=== PATIENT | female | born 1955 | race Caucasian/White ===

== ENCOUNTER → 2017-10-23 | Day surgery (SDC) | payer MEDICARE ==
[~2017-10-23] MED LIST: ALBUTEROL INH; ALLOPURINOL100 MG PO; AMLODIPINE BES2.5 MG PO; AMLODIPINE BESY10 MG PO; ASPIRIN81 MG PO; CALCITRIOL0.25 MCG PO; CARVEDILOL3.125 MG PO; CYMBALTA60 MG PO; DEXILANT60 MG PO; DIOVAN HCT 3201 EACH PO; FENTANYL CITRATE/PF 100MCG/2 ML INJ ONE; FUROSEMIDE40 MG PO; HUMALOG100 UNIT/1 SC; HUMALOG100 UNIT/1 SQ; HYDROCODON-ACE1 EA12 PO; LANTUS100 UNIT/1 SQ; LANTUS100 UNITS/ SQ; LEVOTHYROXINE112 MCG PO; LIPITOR20 MG PO; METFORMIN HCL1000 MG PO; MIDAZOLAM HCL 2 MG/2 ML VIAL ONE; MONTELUKAST SOD10 MG PO; NOVOLOG100 UNIT/1 SQ; PROPOFOL IV EMULSION 10 MG/ML 20 ML VIAL ONE; SYMBICORT 16010.2 GM PO; ULTRAM 50MG50 MG PO; VITAMIN B12 PO; VITAMIN D1000 UNIT PO
== END | disposition home or self-care (01) ==
LOC: OR 07:39
PROVIDERS: ATTEND Internal Medicine Gastroenterology
DX: K29.50 Unspecified chronic gastritis without bleeding (principal); I85.00 Esophageal varices without bleeding; K57.30 Diverticulosis of large intestine without perforation or abscess without bleeding; K64.8 Other hemorrhoids; E11.9 Type 2 diabetes mellitus without complications; I25.119 Atherosclerotic heart disease of native coronary artery with unspecified angina pectoris; I10 Essential (primary) hypertension; I45.10 Unspecified right bundle-branch block; J45.909 Unspecified asthma, uncomplicated; Q61.3 Polycystic kidney, unspecified; E66.01 Morbid (severe) obesity due to excess calories; Z01.810 Encounter for preprocedural cardiovascular examination; Z79.82 Long term (current) use of aspirin; Z79.4 Long term (current) use of insulin; Z68.43 Body mass index [BMI] 50.0-59.9, adult
CPT/HCPCS: 36415; 43239; 45378; 82948; 88305; 88312; 93005; J2250

== ENCOUNTER → 2019-12-09 | Day surgery (SDC) | payer MEDICARE ==
[2019-12-03 15:20] LABS: BASOPHILS # (AUTO) 0.1 (0.0-0.1); BASOPHILS % 0.7 % (0.0-1.0); EOSINOPHILS # (AUTO) 0.3 (0.0-0.4); EOSINOPHILS % 4.7 % (0.0-6.0); HEMATOCRIT 33.8 % (34.2-44.1); LYMPHOCYTES # (AUTO) 1.6 (1.0-3.2); LYMPHOCYTES % 22.3 % (18.0-39.1); MEAN CORPUSCULAR HEMOGLOBIN 26.2 pg (28-32); MEAN CORPUSCULAR HGB CONC 29.6 g/dL (31-35); MEAN CORPUSCULAR VOLUME 88.7 fL (81-99); MONOCYTES # (AUTO) 0.5 (0.2-0.8); MONOCYTES % 6.9 % (4.4-11.3); NEUTROPHILS # (AUTO) 4.7 (2.1-6.9); PLATELET COUNT 219 x10e3/uL (140-360); RED BLOOD COUNT 3.81 x10e6/uL (3.6-5.1)
[2019-12-03 15:31] LABS: INR 0.95; PROTHROMBIN TIME 13.2 seconds (11.9-14.5)
[2019-12-03 15:32] LABS: PARTIAL THROMBOPLASTIN TIME 28.7 seconds (23.8-35.5)
[2019-12-03 15:40] LABS: ALBUMIN 3.4 g/dL (3.5-5.0); ALBUMIN/GLOBULIN RATIO 0.9 (0.8-2.0); ANION GAP 10.7 mmol/L (8-16); CALCIUM 9.6 mg/dL (8.4-10.2); CREATININE, SERUM 2.83 mg/dL (0.57-1.11); POTASSIUM 5.7 mmol/L (3.5-5.1)
[~2019-12-09] MED LIST changes: +CRESTOR10 MG PO; -FENTANYL CITRATE/PF 100MCG/2 ML INJ ONE; -MIDAZOLAM HCL 2 MG/2 ML VIAL ONE; +OMEPRAZOLE40 MG PO; -PROPOFOL IV EMULSION 10 MG/ML 20 ML VIAL ONE; +PROPOFOL IV EMULSION 10 MG/ML 50 ML VIAL ONE; +TORSEMIDE20 MG PO; +VALSARTAN/HCTZ PO
--- OUTSIDE RECORDS SUMMARY | 2019-12-09 06:00 | XMS REPORT ---
[facility] Phone Unavailable Care Team Providers Care Sales Management Trainee Name Role Phone Halle WINKLER PP Unavailable Kaela Lujan Unavailable Unavailable Problems This patient has no known problems. Allergies, Adverse Reactions, Alerts This patient has no known allergies or adverse reactions. Medications This patient has no known medications. Encounters Start Date/Time End Date/Time Encounter Type Admission Type Attending [facility] Care Facility Care Department Encounter ID 2019-06-28 07:55:09 Outpatient [facility] [id number] 2019-11-18 11:25:00 2019-11-18 08:19:00 Inpatient E [facility] [id number] 2019-08-20 09:10:00 2019-08-20 09:10:00 Outpatient [facility] CAR [id number] 2019-08-16 14:44:00 2019-08-16 14:44:00 Outpatient [facility] CAR [id number] 2019-03-24 15:02:00 2019-03-24 15:02:00 Outpatient [facility] [id number] 2019-03-07 12:17:00 2019-03-07 12:17:00 Emergency E [facility] [id number] 2019-02-25 13:06:00 2019-02-25 13:06:00 Outpatient [facility] MED [id number] 2017-05-19 10:22:00 2017-05-19 10:22:00 Outpatient C [facility] [id number] Results Test Description Test Time Test Comments Text Results Atomic Results Result Comments Radiologic examination, chest; 2 views 2019-06-24 16:36:22 CLINICAL INDICATION: R05 CoughTECHNIQUE: PA and lateral views of the chest.FINDINGS: Comparison study: 05/16/2012The lungs are clear. There are no infiltrates or effusions.The cardiac silhouette is unremarkable. The crow and mediastinum are intact.The regional skeleton is intact.IMPRESSION:No acute/interval changes. CR - XRAY HAND XR MIN 3 VWS RT 2019-01-13 15:27:35 CLINICAL INDICATION: M79.641 Pain in right handCOMPARISON STUDY: No prior study.FINDINGS:There are no acute fractures, dislocations or subluxations.Mild osteoarthritis is noted in the IP joints of the fingers and thumb the. Mild joint space narrowing, subchondral sclerosis and minor osteophyte formation are observed.No radiopaque foreign body.The soft tissues are normal. IMPRESSION:1. No acute a bnormality.2. 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 CR - XRAY XRAY DEXA BONE DENSITY 2018-11-02 15:57:00 CLINICAL INDICATION: Z13.820 Encounter for screening for osteoporosis TECHNIQUE: Bone densitometry is performed using the Hologic Dexa. Imaging of the spine and hip are performed. Quantitative analysis is accomplished.FINDINGS:COMPARISON: NoneThe BMD at the left femoral neck is 0.832 gms/cm.sq. This is consistent with young adult T- score of -0.4 and age matched Z-score of 1.0.The BMD at the right femoral neck is 0.847 gms/cm.sq. This is consistent with young adult T-score of -0.2 and age matched Z-score of 1.2.Average bone mineral density of L1 - L4 is 1.062 gms/cm.sq. This is consistent with young adult T-score of 0.1 and age matched Z- score of 1.8.IMPRESSION:WHO diagnostic category is normal bone density based upon lumbar spine and bilateral femoral necks. Mammo Digital Mammography Screening 2018-11-02 15:54:31 CLINICAL INDICATION: Z12.31 Encntr screen mammogram for malignant neoplasm of breastTECHNIQUE: Digital acquisition of the breasts is performed on the ACR accredited Full Field Digital Mammography Unit. Computer Assisted Detection (CAD) is then accomplished using [employer]. FINDINGS:COMPARISON STUDY: Back to 09/25/2016.There are scattered fibroglandular tissues in both breasts.No dominant mass, skin thickening, architectural distortion or suspicious microcalcifications are noted. IMPRESSION:No evidence of malignancy. RECOMMENDATION: Follow up screening mammogram in 1 year.Category: BIRADS 1 - Negative. For internal use only. N:12 US VENOUS/BILAT/LOWER 2018-08-25 16:28:48 CLINICAL INDICATION: M79.609 Pain in unspecified limbMODALITY: GETECHNIQUE: Real time, high frequency Doppler waveform and color imaging of the lower extremities are performed.COMPARISON: none FINDINGS:Common femoral, greater saphenous, femoral, popliteal and proximal calf veins are imaged. Spontaneous and phasic flow are observed. Vessels are compressible without evidence of intraluminal thrombus. IMPRESSION:Unremarkable venous Doppler ultrasound of the bilateral lower extremity. US BREAST COMPLETE UNL LT/RT CLINICAL INDICATION: Abnormal mammogram.MODALITY: Siemens Inspiration Full Field Digital Mammography, Kaela Affiniti 70GTECHNIQUE: Digital acquisition of the breasts is performed on the [facility] acc redited Full Field Digital Mammography Unit. Computer Assisted Detection (CAD) is then accomplished using [employer]. Imaging of the right breast is performed.Realtime and Doppler color breast imaging in all quadrants was performed on the right breast.FINDINGS:COMPARISON STUDY: 10/21/2017There are scattered fibroglandular tissues in both breasts.Additional mammographic images of the right breast demonstrate no significant underlying abnormalities.Ultrasound of the right breast demonstrates benign lipomas measuring 7 mm at 2 o clock, 6 cm from the nipple and 1.8 cm at 4 o clock in the subareolar region. No other sonographic findings are noted in the right breast or axilla. The patient was examined by myself.IMPRESSION:No mammographic or sonographic evidence of malignancy in the right breast.RECOMMENDATION:Routine annual screening mammogram in 1 year is recommended.The findings were discussed with the patient.Category: BIRADS 2 - Benign. For internal use only N:12 Mammo Digital Mammography Screening CLINICAL INDICATION: This is a routine annual screening mammogram. The patient has no complaints.MODALITY: Siemens Inspiration Full Field Digital MammographyTECHNIQUE: Digital acquisition of th e breasts is performed on the [facility] accredited Full Field Digital Mammography Unit. Computer Assisted Detection (CAD) is then accomplished using [employer]. Imaging of the bilateral breasts is performed.FINDINGS:COMPARISON STUDY: 09/25/2016The breasts are predominantly fatty.There is an asymmetry in the right lateral breast on the craniocaudad view only. There are no suspicious masses, calcifications or architectural distortion in the left breast.IMPRESSION:Asymmetry in the right breast, probably fibroglandular breast tissue. No mammographic evidence of malignancy in the left breast.RECOMMENDATION : Additional mammographic images and possible ultrasound of the right breast are recommended for further evaluation.Category: BIRADS 0 - Incomplete. Needs additional imaging for evaluation. For internal use only A:0
--- NOTE | 2019-12-09 07:50 | NUR ---
SPIRITUAL CARE - Pre-Surgery Assessment: Pt in bed. Pt's at bedside. Pt reported supportive attention from family and friends. Intervention: I provided pastoral presence, hospitality, prayer, and sympathetic listening. I acquainted pt with availability of keel press operator while hospitalized. Outcome: Pt expressed appreciation for visit. No need for follow up indicated at this time. HEATHER Bowmanlain Spiritual Care Department O: [phone]
[2019-12-09 09:05] VITALS: BP 121/81
== END | disposition home or self-care (01) ==
LOC: OR 05:56
PROVIDERS: ATTEND Internal Medicine Gastroenterology
DX: K29.70 Gastritis, unspecified, without bleeding (principal); K31.89 Other diseases of stomach and duodenum; K74.69 Other cirrhosis of liver; R11.2 Nausea with vomiting, unspecified; I10 Essential (primary) hypertension; E11.9 Type 2 diabetes mellitus without complications; E66.01 Morbid (severe) obesity due to excess calories; Z68.43 Body mass index [BMI] 50.0-59.9, adult; D64.9 Anemia, unspecified; Z86.010 Personal history of colon polyps; G47.30 Sleep apnea, unspecified; K44.9 Diaphragmatic hernia without obstruction or gangrene; Z80.0 Family history of malignant neoplasm of digestive organs; Z80.8 Family history of malignant neoplasm of other organs or systems; Z83.3 Family history of diabetes mellitus; Z82.49 Family history of ischemic heart disease and other diseases of the circulatory system; Z79.4 Long term (current) use of insulin
CPT/HCPCS: 36415 ×2; 43239; 80053; 82948; 84132; 85025; 85610; 85730; 88305; 88312; 93005; J2704

== ENCOUNTER → 2020-08-18 | Day surgery (SDC) | payer OTHER ==
[2020-08-15 11:57] LABS: BASOPHILS # (AUTO) 0.1 (0.0-0.1); BASOPHILS % 0.9 % (0.0-1.0); EOSINOPHILS # (AUTO) 0.5 (0.0-0.4); EOSINOPHILS % 6.7 % (0.0-6.0); HEMATOCRIT 32.4 % (34.2-44.1); HEMOGLOBIN 9.5 g/dL (12.0-16.0); LYMPHOCYTES # (AUTO) 1.3 (1.0-3.2); LYMPHOCYTES % 17.9 % (18.0-39.1); MEAN CORPUSCULAR HEMOGLOBIN 26.2 pg (28-32); MEAN CORPUSCULAR HGB CONC 29.3 g/dL (31-35); MEAN CORPUSCULAR VOLUME 89.5 fL (81-99); MONOCYTES # (AUTO) 0.4 (0.2-0.8); MONOCYTES % 5.7 % (4.4-11.3); NEUTROPHILS # (AUTO) 4.8 (2.1-6.9); NEUTROPHILS % 68.4 % (38.7-80.0); PLATELET COUNT 194 x10e3/uL (140-360); RED BLOOD COUNT 3.62 x10e6/uL (3.6-5.1)
[2020-08-15 12:07] LABS: INR 1.01; PROTHROMBIN TIME 13.8 seconds (11.9-14.5)
[2020-08-15 12:08] LABS: PARTIAL THROMBOPLASTIN TIME 29.2 seconds (23.8-35.5)
[2020-08-15 12:14] LABS: ALBUMIN 3.3 g/dL (3.5-5.0); ALBUMIN/GLOBULIN RATIO 0.8 (0.8-2.0); ANION GAP 12.5 mmol/L (8-16); CALCIUM 8.9 mg/dL (8.4-10.2); CREATININE, SERUM 3.07 mg/dL (0.57-1.11); POTASSIUM 5.5 mmol/L (3.5-5.1)
[~2020-08-18] MED LIST changes: +ALBUTEROL0.63 MG/3 INH; +LIDOCAINE HCL 2% LOCAL INJ 5 ML SDV VIAL INJ ONE; +PROPOFOL IV EMULSION 10 MG/ML 20 ML VIAL ONE; -PROPOFOL IV EMULSION 10 MG/ML 50 ML VIAL ONE
[2020-08-18 07:45] VITALS: BP 122/65
== END | disposition home or self-care (01) ==
LOC: OR 05:30
PROVIDERS: ATTEND Internal Medicine Gastroenterology
DX: K92.1 Melena (principal); K74.69 Other cirrhosis of liver; K57.30 Diverticulosis of large intestine without perforation or abscess without bleeding; K64.8 Other hemorrhoids; Z71.3 Dietary counseling and surveillance; I10 Essential (primary) hypertension; E11.9 Type 2 diabetes mellitus without complications; E66.01 Morbid (severe) obesity due to excess calories; R42 Dizziness and giddiness; J45.909 Unspecified asthma, uncomplicated; G47.33 Obstructive sleep apnea (adult) (pediatric); E78.5 Hyperlipidemia, unspecified; I83.90 Asymptomatic varicose veins of unspecified lower extremity; K44.9 Diaphragmatic hernia without obstruction or gangrene; N28.1 Cyst of kidney, acquired; F41.9 Anxiety disorder, unspecified; X58.XXXA Exposure to other specified factors, initial encounter; T78.40XA Allergy, unspecified, initial encounter; Z01.810 Encounter for preprocedural cardiovascular examination; Z01.812 Encounter for preprocedural laboratory examination; Z11.59 Encounter for screening for other viral diseases; Z79.4 Long term (current) use of insulin; Z79.82 Long term (current) use of aspirin; Z68.43 Body mass index [BMI] 50.0-59.9, adult; Z87.01 Personal history of pneumonia (recurrent); Z86.718 Personal history of other venous thrombosis and embolism; Z87.891 Personal history of nicotine dependence; Z80.0 Family history of malignant neoplasm of digestive organs
CPT/HCPCS: 36415; 45378; 80053; 82948; 84132; 85025; 85610; 85730; 93005; J2001

== ENCOUNTER → 2024-09-30 | Day surgery (SDC) | payer OTHER ==
[~2024-09-30] MED LIST changes: +HYDROCODON-ACE1 EA11 PO; -LIDOCAINE HCL 2% LOCAL INJ 5 ML SDV VIAL INJ ONE; +RENAL CAPS SOFTG1 MG PO
[2024-09-30] MEDS: SODIUM CHLORIDE 0.9% 500ML 500 ML ONE (06:11)
[2024-09-30 06:59] LABS: BASOPHILS # (AUTO) 0.1 (0.0-0.1); BASOPHILS % 1.3 % (0.0-1.0); EOSINOPHILS # (AUTO) 0.2 (0.0-0.4); HEMATOCRIT 42.4 % (34.2-44.1); HEMOGLOBIN 12.6 g/dL (12.0-16.0); LYMPHOCYTES % 16.5 % (18.0-39.1); MEAN CORPUSCULAR HEMOGLOBIN 31.9 pg (28-32); MEAN CORPUSCULAR HGB CONC 29.7 g/dL (31-35); MEAN CORPUSCULAR VOLUME 107.3 fL (81-99); MONOCYTES # (AUTO) 0.5 (0.2-0.8); MONOCYTES % 7.9 % (4.4-11.3); NEUTROPHILS # (AUTO) 4.2 (2.1-6.9); NEUTROPHILS % 70.3 % (38.7-80.0); PLATELET COUNT 139 x10e3/uL (140-360); RED BLOOD COUNT 3.95 x10e6/uL (3.6-5.1); RED CELL DISTRIBUTION WIDTH 14.4 % (11.7-14.4); WHITE BLOOD COUNT 5.94 x10e3/uL (4.8-10.8)
[2024-09-30 07:09] LABS: INR 0.93
[2024-09-30 07:25] LABS: ALBUMIN 3.3 g/dL (3.5-5.0); ALBUMIN/GLOBULIN RATIO 0.8 (0.8-2.0); ALKALINE PHOSPHATASE 62 IU/L (40-150); ANION GAP 20.1 mmol/L (8-16); BILIRUBIN,TOTAL 0.6 mg/dL (0.2-1.2); BLOOD UREA NITROGEN 20 mg/dL (7-26); BUN/CREATININE RATIO 3 (6-25); CALCIUM 8.8 mg/dL (8.4-10.2); CARBON DIOXIDE 25 mmol/L (22-29); CHLORIDE 96 mmol/L (98-107); CREATININE, SERUM 6.43 mg/dL (0.57-1.11); EST GLOMERULAR FILTRATION RATE 7 ML/MIN (>=60); GLUCOSE 121 mg/dL (74-118); POTASSIUM 4.1 mmol/L (3.5-5.1); SODIUM 137 mmol/L (136-145); TOTAL PROTEIN 7.3 g/dL (6.5-8.1)
[2024-09-30 07:37] LABS: ALANINE AMINOTRANSFERASE < 6 IU/L (0-55)
[2024-09-30 08:39] VITALS: TEMP 98.1
[2024-09-30 09:00] VITALS: BP 105/66; PULSE 80; RESP 18; O2SAT 99
[2024-09-30 09:58] LABS: EOSINOPHILS % (MANUAL) 2 % (0-7); LYMPHOCYTES % (MANUAL) 20 % (19-48); MONOCYTES % (MANUAL) 8 % (3.4-9.0); NEUTROPHILS % (MANUAL) 70 % (40-74); PLATELET ESTIMATE SLIGHTLY DECREASED; PLATELET MORPHOLOGY COMMENT NORMAL; RBC MORPHOLOGY COMMENT NORMAL
== END | disposition home or self-care (01) ==
LOC: OR 05:50
PROVIDERS: ATTEND Internal Medicine Gastroenterology
DX: R13.10 Dysphagia, unspecified (principal); D12.2 Benign neoplasm of ascending colon; D12.3 Benign neoplasm of transverse colon; K29.50 Unspecified chronic gastritis without bleeding; K21.9 Gastro-esophageal reflux disease without esophagitis; K57.30 Diverticulosis of large intestine without perforation or abscess without bleeding; K64.0 First degree hemorrhoids; Z71.3 Dietary counseling and surveillance; K74.69 Other cirrhosis of liver; E11.22 Type 2 diabetes mellitus with diabetic chronic kidney disease; N18.6 End stage renal disease; E66.01 Morbid (severe) obesity due to excess calories; Z01.810 Encounter for preprocedural cardiovascular examination; G47.33 Obstructive sleep apnea (adult) (pediatric); J45.909 Unspecified asthma, uncomplicated; E03.9 Hypothyroidism, unspecified; E78.5 Hyperlipidemia, unspecified; G89.29 Other chronic pain; M19.90 Unspecified osteoarthritis, unspecified site; F41.9 Anxiety disorder, unspecified; Z99.2 Dependence on renal dialysis; Z79.82 Long term (current) use of aspirin; Z79.4 Long term (current) use of insulin; Z79.899 Other long term (current) drug therapy; Z68.43 Body mass index [BMI] 50.0-59.9, adult; Z87.891 Personal history of nicotine dependence; Z85.42 Personal history of malignant neoplasm of other parts of uterus
CPT/HCPCS: 36415; 43249; 45385; 80053; 85025; 85610; 85730; 88305; 93005; J2704; J7040; 43450